=== PATIENT | male | born 2000 | race American Indian/Alaskan Native ===

== ENCOUNTER 2021-07-29 18:53 | Emergency (ER) | payer BC ==
--- NOTE | 2021-07-29 20:10 | XRay Report ---
CHEST 2 VIEWS INDICATION / CLINICAL INFORMATION: cough, brown sputum. COMPARISON: None available. FINDINGS: SUPPORT DEVICES: None. HEART / MEDIASTINUM: No significant abnormality. LUNGS / PLEURA: No significant pulmonary or pleural abnormality. No pneumothorax. ADDITIONAL FINDINGS: No significant additional findings. IMPRESSION: 1. No acute findings. Signer Name: Jaden Vazquez MD Signed: 07/29/2021 8:05 PM Workstation Name: [id number]
[2021-07-29 20:13] VITALS: BP 111/73
--- NOTE | 2021-07-29 20:23 | Emergency Department Report ---
ED General Adult HPI - General Chief complaint: Upper Respiratory Infection Stated complaint: CHILLS,COUGH BACK PAIN Time Seen by Provider: 07/29/21 19:12 Source: patient Mode of arrival: Ambulatory Limitations: No Limitations - History of Present Illness Initial comments: 21-year-old -Filipino male patient presents with complaints of cough x10 days. Patient states his cough improved after about 5 days but then suddenly began to worsen about 4 days ago. He states his cough is mildly productive of brown sputum. He denies any hemoptysis, chest pain, shortness of breath, loss of taste or smell, recent known sick contacts, or other past medical history. He admits to being a daily smoker. He has not had COVID-19 testing or the vaccination. - Related Data Previous Rx's Medication Instructions Recorded Last Taken Type Azithromycin [Zithromax Z-GLORIA] 0 mg PO DAILY 5 Days #6 tab 07/29/21 Unknown Rx Benzonatate 200 mg PO TID PRN #30 capsule 07/29/21 Unknown Rx predniSONE [Deltasone] 20 mg PO BID #6 07/29/21 Unknown Rx ED Review of Systems ROS: Stated complaint: CHILLS,COUGH BACK PAIN Other details as noted in HPI Constitutional: chills, malaise. denies: diaphoresis, fever, weakness Respiratory: cough. denies: shortness of breath Cardiovascular: denies: chest pain Gastrointestinal: denies: abdominal pain Neurological: denies: headache ED Past Medical Hx - Past Medical History Previous Medical History?: No - Surgical History Past Surgical History?: No - Social History Smoking Status: Never Smoker Substance Use Type: None - Medications Home Medications: Home Medications Medication Instructions Recorded Confirmed Last Taken Type Azithromycin [Zithromax Z-GLORIA] 0 mg PO DAILY 5 Days #6 tab 07/29/21 Unknown Rx Benzonatate 200 mg PO TID PRN #30 capsule 07/29/21 Unknown Rx predniSONE [Deltasone] 20 mg PO BID #6 07/29/21 Unknown Rx ED Physical Exam - General Limitations: No Limitations General appearance: alert, in no apparent distress - Head Head exam: Present: atraumatic, normocephalic - Eye Eye exam: Present: normal appearance - Respiratory Respiratory exam: Present: rhonchi. Absent: normal lung sounds bilaterally, respiratory distress, wheezes, rales, stridor - Cardiovascular Cardiovascular Exam: Present: regular rate, normal rhythm - Neurological Exam Neurological exam: Present: alert, oriented X3, normal gait - Psychiatric Psychiatric exam: Present: normal affect, normal mood - Skin Skin exam: Present: warm, dry, intact, normal color. Absent: rash ED Course Vital Signs 07/29/21 07/29/21 19:08 20:11 Temperature 98.3 F 97.9 F Pulse Rate 96 H 71 Respiratory 18 12 Rate Blood Pressure 123/70 Blood Pressure 111/73 [Right] O2 Sat by Pulse 98 99 Oximetry ED Medical Decision Making - Radiology Data Radiology results: report reviewed CHEST 2 VIEWS INDICATION / CLINICAL INFORMATION: cough, brown sputum. COMPARISON: None available. FINDINGS: SUPPORT DEVICES: None. HEART / MEDIASTINUM: No significant abnormality. LUNGS / PLEURA: No significant pulmonary or pleural abnormality. No pneumothorax. ADDITIONAL FINDINGS: No significant additional findings. IMPRESSION: 1. No acute findings. - Medical Decision Making 21-year-old -Fil[place]ino male patient presents with complaints of cough x10 days. Patient states his cough improved after about 5 days but then suddenly began to worsen about 4 days ago. He states his cough is mildly productive of brown sputum. He denies any hemoptysis, chest pain, shortness of breath, loss of taste or smell, recent known sick contacts, or other past medical history. He admits to being a daily smoker. He has not had COVID-19 testing or the vaccination. X-rays negative for any acute abnormalities, however rhonchi noted on exam. Given duration of patient's symptoms and him being a daily smoker, patient will be covered for bacterial bronchitis with azithromycin. Recommend outpatient COVID-19 testing. Discussed in great detail signs and symptoms that should prompt immediate return to the ED with patient verbalized understanding. He is well-appearing, his vitals are within normal limits, he is stable for discharge home. Patient to follow-up with PCP in 3 to 5 days Critical care attestation.: If time is entered above; I have spent that time in minutes in the direct care of this critically ill patient, excluding procedure time. ED Disposition Clinical Impression: Acute bronchitis, bacterial Disposition: HOME / SELF CARE / HOMELESS Is pt being admited?: No Condition: Stable Instructions: Acute Bronchitis (ED) Additional Instructions: Please seek out outpatient COVID-19 testing within the next 24 to 48 hours and self quarantine until you are further Prescriptions: Benzonatate 200 mg PO TID PRN #30 capsule PRN Reason: Cough predniSONE [Deltasone] 20 mg PO BID #6 Azithromycin [Zithromax Z-GLORIA] 0 mg PO DAILY 5 Days #6 tab Referrals: [facility] [Provider Group] - 3-5 Days Forms: Work/School Release Form(ED)
== END 2021-07-29 21:26 | disposition home or self-care (01) ==
LOC: ED 18:53
DX: J20.8 Acute bronchitis due to other specified organisms (principal); F17.200 Nicotine dependence, unspecified, uncomplicated
CPT/HCPCS: 71046; 99283